=== PATIENT | male | born 1955 | race Caucasian/White ===

== ENCOUNTER 2017-01-25 15:09 | Emergency (ER) | payer MEDICARE, MEDICAID ==
[~2017-01-25] VITALS: Ht 177.8 cm; Wt 63.6 kg
[2017-01-25] MEDS ORDERED: PROAIR HFA0.09 MG/AC IH (15:17)
[2017-01-25] MEDS ORDERED: OXYCODONE HCL10 M1 PO (15:17)
[2017-01-25] MEDS ORDERED: LYRICA100 MG PO (15:17)
[2017-01-25] MEDS ORDERED: ALPRAZOLAM1 MG PO (15:17)
[2017-01-25] MEDS ORDERED: OXYCODONE HCL15 MG PO (15:18)
[2017-01-25 17:02] VITALS: BP 134/78
== END 2017-01-25 16:51 | disposition home or self-care (01) ==
LOC: ED 15:09
DX: S30.861A Insect bite (nonvenomous) of abdominal wall, initial encounter (principal); W57.XXXA Bitten or stung by nonvenomous insect and other nonvenomous arthropods, initial encounter; Z79.891 Long term (current) use of opiate analgesic
CPT/HCPCS: J7030

== ENCOUNTER 2017-02-03 10:22 | Emergency (ER) | payer MEDICARE, MEDICAID ==
[~2017-02-03] VITALS: Ht 177.8 cm; Wt 65.9 kg
[~2017-02-03 10:22] MED LIST: ALPRAZOLAM1 MG PO; LYRICA100 MG PO; OXYCODONE HCL10 M1 PO; OXYCODONE HCL15 MG PO; PROAIR HFA0.09 MG/AC IH
[2017-02-03] MEDS ORDERED: CIALIS5 MG PO (10:38)
[2017-02-03] MEDS ORDERED: DOXYCYCLINE HY100 M5 PO (12:37)
[2017-02-03 12:43] VITALS: BP 102/72
== END 2017-02-03 12:46 | disposition home or self-care (01) ==
LOC: ED 10:22
DX: S30.861A Insect bite (nonvenomous) of abdominal wall, initial encounter (principal); W57.XXXA Bitten or stung by nonvenomous insect and other nonvenomous arthropods, initial encounter; M25.50 Pain in unspecified joint; G89.29 Other chronic pain